=== PATIENT | male | born 1975 | race Hispanic/Latino ===

== ENCOUNTER 2022-01-30 14:43 | Emergency (ER) | payer OTHER, SELFPAY ==
[2022-01-30] MEDS ORDERED: Metoclopramide HCl 10 MG/2 ML VIAL ONE (15:50)
[2022-01-30] MEDS ORDERED: Diazepam 5 MG TAB ONE (15:50)
== END 2022-01-30 16:42 | disposition home or self-care (01) ==
LOC: CSHERS 14:43
DX: R06.6 Hiccough (principal)
CPT/HCPCS: 96372; 99283; J2765